=== PATIENT | female | born 1935 | race Two or more races ===

== ENCOUNTER 2018-08-28 13:07 | Outpatient (CLI) | payer MEDICARE, MEDICAID ==
[2018-08-29] MEDS ORDERED: HYDR-4076 PO (02:04)
[2018-08-29] MEDS ORDERED: PYRI60TA PO (02:04)
[2018-08-29] MEDS ORDERED: METO50TA16 PO (02:04)
[2018-08-29] MEDS ORDERED: ASPI-605 PO (02:04)
[2018-08-29] MEDS ORDERED: METO25TA3 PO (07:58)
[2018-08-29] MEDS ORDERED: ATOR10TA PO (07:58)
== END 2018-08-28 23:59 | disposition home health service (06) ==
LOC: WOU 13:07
PROVIDERS: ATTEND Surgery
DX: S41.111A Laceration without foreign body of right upper arm, initial encounter (principal); S51.811A Laceration without foreign body of right forearm, initial encounter; L03.113 Cellulitis of right upper limb; X58.XXXA Exposure to other specified factors, initial encounter; Y92.049 Unspecified place in boarding-house as the place of occurrence of the external cause; L89.210 Pressure ulcer of right hip, unstageable; L89.100 Pressure ulcer of unspecified part of back, unstageable; F03.90 Unspecified dementia, unspecified severity, without behavioral disturbance, psychotic disturbance, mood disturbance, and anxiety; Z98.49 Cataract extraction status, unspecified eye; Z79.82 Long term (current) use of aspirin; Z79.899 Other long term (current) drug therapy; Z74.09 Other reduced mobility
CPT/HCPCS: 11043; A6253; A6402; J3490

== ENCOUNTER 2018-08-28 14:45 | Inpatient (IN) | payer MEDICAID, MEDICARE ==
[2018-08-28] VITALS: BP_SYST 153; BP_DIAS 73; BP_DIAS 74
[~2018-08-28] VITALS: Ht 154.9 cm; Wt 72.6 kg
--- NOTE | 2018-08-28 13:00 | NUR ---
PAM. PT RECEIVED FROM [facility] WITH FAMILY. PT DIRECT FROM WOUND [facility]INIC. PT SITTING APPROX 15MIN IN WHEELCHAIR. PT ORTHOSTATIC TAKEN FROM CHAIR, SITTING BP 63/37, PT TRANSFERRED TO BED, REVERSE [place], BP 100/54, TS INFORMED AND ORDERS RECEIVED. IVX1 STARTED. PT AT [facility] ALERT TO SELF. PT SKIN ASSESSMENT COMPLETED AND CHART UPDATED, PT BELONGINGS LIST COMPLETED BY CAFETERIA OPERATOR. PT AND FAMILY BRIEFED ON POC AND ARE WITHOUT CONCERN OR COMPLAINT AT THIS TIME.
[2018-08-28 15:30] VITALS: BP 100/54
[2018-08-28 16:43] VITALS: BP_SYST 100; BP_SYST 63; BP_DIAS 37; BP_DIAS 54
[2018-08-28] MEDS ORDERED: ONDANSETRON HCL/PF 4 MG/2 ML VIAL IVP PRN (17:00)
[2018-08-28] MEDS ORDERED: HYDROCORTISONE SOD SUCCINATE 100 MG/2 ML VIAL IV ONE (17:00)
[2018-08-28] MEDS ORDERED: IV NS 0.9% 500 ML IV ONE (17:00)
[2018-08-28] MEDS ORDERED: ZOLPIDEM TARTRATE 5 MG TABLET PO PRN (17:00)
[2018-08-28] MEDS ORDERED: Z GUARD REMEDY 2 OZ OINT TP PRN (17:00)
[2018-08-28] MEDS ORDERED: FEE PK DOSING 1 MIN EA MC ONE (17:30)
[2018-08-28] MEDS ORDERED: VANCOMYCIN 1 GM in IV D5W 250 ML IV ONE ×2 (17:30→18:00)
[2018-08-28 18:07] LABS: CALCIUM, SERUM 8.5 mg/dL (8.5-10.1); CARBON DIOXIDE 29 mmol/L (21-32); CHLORIDE 103 mmol/L (98-107); CREATININE 1.3 mg/dL (0.6-1.3); GLUCOSE 121 mg/dL (74-106); SODIUM SERUM 138 mmol/L (136-145); UREA NITROGEN, BLOOD 26 mg/dL (7-18)
[2018-08-28] MEDS: IV NS 0.9% 1,000 ML IV PRN (18:08)
[2018-08-28 18:25] VITALS: BP 110/59
--- NOTE | 2018-08-28 18:51 | NUR ---
MSRN. PT TOLERATING ROOM AIR WITH SPO2 WNL AND WITHOUT DISTRESS, PT WITHOUT OBVIOUS DISTRESS OR DISCOMFORT. PT IVC AT L AC INTACT AND OPERATIONAL WITH BANDAGE AND SLEEVE FOR PROTECTION. PT WITH FAMILY AT BEDSIDE. ALL DAY NURSE DUTIES ATTENDED TO AND PT AND FAMILY ARE WITHOUT CONCERN OR COMPLAINT AT THIS TIME.
--- NOTE | 2018-08-28 19:30 | NUR ---
MS1 RN NOTES RECEIVED ON BED SLEEPING,AROUSABLE TO VERBAL STIMULI.BREATHING NON LABORED,97% ON ROOM AIR.WITH IVF NS AT 75ML/HR RATE INFUSING VIA IV PUMP ON LEFT AC.VISITORS AT BEDSIDE.ALL LIGHT IN REACH,NEEDS ANTICIPATED. Addendum: 08/28/18 at 2224 by TOBY DANIELS RN ABOVE NOTES,PATIENT AROUSABLE TO CARE,FACIAL GRIMACE WHEN REPOSITIONING,
[2018-08-28 20:00] VITALS: BP 147/73
[2018-08-28] MEDS ORDERED: PIPERACILLIN /TAZOBACTAM 3.375 G in IV D5W 50 ML IV ONE (20:00)
--- NOTE | 2018-08-28 20:30 | NUR ---
MS1 RN NOTES FAMILY MEMBER CONCERN ABOUT PATIENT STATUS,NON AROUSABLE TO VERBAL STIMULI,BUT WITH FACIAL GRIMACE ON REPOSITIONING.FAMILY WANTS BLOOD WORKS.CHARGE NURSE MADE AWARE,TO CALL DR CASTRO OVERHEAD IRRIGATOR MD FOR TONIGHT.
--- NOTE | 2018-08-28 20:48 | NUR ---
MS1 RN NOTES LOADING DOSE OF ZOSYN 3.375GM IV STARTED AT 100ML/HR RATE VIA IV PUMP ON LEFT AC.
[2018-08-28] MEDS: ENOXAPARIN SODIUM 30 MG/0.3 ML DISP.SYRIN SQ SCH (21:00)
--- NOTE | 2018-08-28 21:20 | NUR ---
MS1 RN NOTES SPOKE TO DR CASTRO,MADE AWARE OF PATIENT STATUS,GIVE SOME INFORMATION REGARDING ADMISSION WITH NEW ORDERS NOTED AND CARRIED OUT.
[2018-08-28 21:24] LABS: BASOPHILS % (AUTO) 0.3 % (0.0-2.0); EOSINOPHILS % (AUTO) 0.5 % (0.0-6.0); HEMATOCRIT 29 % (33-45); HEMOGLOBIN 9.8 g/dL (11.5-14.8); LYMPHOCYTES # (AUTO) 0.8 /CMM (0.8-4.8); LYMPHOCYTES % (AUTO) 9.9 % (20.0-44.0); MEAN CORPUSCULAR HGB CONC 34 g/dl (31.0-36.0); MEAN CORPUSCULAR VOLUME 86 fL (82-100); MONOCYTES # (AUTO) 0.3 /CMM (0.1-1.30); MONOCYTES % (AUTO) 3.6 % (2.0-12.0); NEUTROPHILS # (AUTO) 7.2 /CMM (1.8-8.9); NEUTROPHILS % (AUTO) 85.7 % (43.0-81.0); PLATELET COUNT (AUTO) 282 /CMM (150-450); RED BLOOD CELL COUNT(AUTO) 3.41 MIL/uL (4.0-5.2); WHITE BLOOD COUNT (AUTO) 8.4 K/uL (4.3-11.0)
[2018-08-28 21:38] LABS: C-REACTIVE PROTEIN 1.9 mg/dL (0.0-0.9)
--- NOTE | 2018-08-28 21:45 | NUR ---
TELE1 RN NOTES PORTABLE CHEST X-RAY DONE.
--- NOTE | 2018-08-28 22:00 | NUR ---
TELE1 RN NOTES OUT FOR CT HEAD WITHOUT CONTRAST BY BED,WITH TELE MONITOR ACCOMPANIED BY LISA CHARGE NURSE.
--- NOTE | 2018-08-28 22:30 | NUR ---
TELE1 RN NOTES ACCU-CHECK BLOOD SUGAR CHECK 110,NO INSULIN COVERAGE,JUST FOR DIAGNOSTIC
--- NOTE | 2018-08-28 23:30 | NUR ---
TELE1 RN NOTES STARTED TO WAKE UP,OPEN EYES,ABLE TO TALK TO FAMILY MEMBERS,REPOSITION TO COMFORT.ABLE TO DRINK APPLE JUICE.NEGATIVE FOR ASPIRATION.
[2018-08-28] MEDS: ACETAMINOPHEN 325 MG TABLET PO PRN (23:37)
--- NOTE | 2018-08-28 23:37 | NUR ---
TELE1 RN NOTES C/O MILD PAIN ON RIGHT ARM,S/P WOUND DEBRIDEMENT,MEDICATED WITH TYLENOL 650MG PO ,TAKEN WELL.FAMILY MEMBER DONT WANT NARCOTICS FOR PATIENT.
[2018-08-29] VITALS: BP 153/74
[2018-08-29 00:19] LABS: APPEARANCE,URINE CLEAR (CLEAR); BILIRUBIN,URINE NEGATIVE (NEGATIVE); BLOOD, URINE NEGATIVE Ery/uL (NEGATIVE); COLOR,URINE OTHER (YELLOW); KETONES,URINE NEGATIVE (NEGATIVE); LEUKOCYTE ESTERASE ,URINE NEGATIVE (NEGATIVE); NITRITE, URINE NEGATIVE (NEGATIVE); PH,URINE 6.5 (5.0-8.0); PROTEIN,URINE NEGATIVE (NEGATIVE); UGLUCOSE NEGATIVE (NEGATIVE); UROBILINOGEN,URINE 0.2 EU/dL (0.2)
[2018-08-29] MEDS ORDERED: HYDR-4076 PO (02:04)
[2018-08-29] MEDS ORDERED: METO50TA16 PO (02:04)
[2018-08-29] MEDS ORDERED: PYRI60TA PO (02:04)
[2018-08-29] MEDS ORDERED: ASPI-605 PO (02:04)
[2018-08-29] MEDS: PIPERACILLIN /TAZOBACTAM 3.375 G in IV D5W 100 ML IV SCH ×2 (02:12→14:44)
[2018-08-29 06:00] VITALS: BP 150/60
--- NOTE | 2018-08-29 06:00 | NUR ---
TELE1 RN NOTES FAMILY MEMBER VELVET STILL WANTED TO TALK TO HOSPITALIST.CHARGE NURSE MADE AWARE.CHARGE NURSE MADE AWARE AND SEND MESSAGE TO HOSPTALIST DR CASTRO.PER CHARGE NURSE,DR CASTRO SAID THAT DR PRAKASH CAMARA IS THE DOCTOR AND SHE ONLY COVERING,THAT HE WILL BE HERE SOON TO SEE PATIENT.
--- NOTE | 2018-08-29 06:30 | NUR ---
TELE1 RN NOTES NURSING USED CAR SALES SUPERVISOR GERMAN MADE AWARE OF PATIENT CONCERN.
[2018-08-29 06:32] LABS: BASOPHILS % (AUTO) 0.3 % (0.0-2.0); EOSINOPHILS % (AUTO) 0.1 % (0.0-6.0); HEMATOCRIT 28 % (33-45); HEMOGLOBIN 9.4 g/dL (11.5-14.8); LYMPHOCYTES % (AUTO) 14.1 % (20.0-44.0); MEAN CORPUSCULAR HGB CONC 34 g/dl (31.0-36.0); MEAN CORPUSCULAR VOLUME 86 fL (82-100); MONOCYTES # (AUTO) 0.3 /CMM (0.1-1.30); MONOCYTES % (AUTO) 4.9 % (2.0-12.0); NEUTROPHILS # (AUTO) 5.5 /CMM (1.8-8.9); NEUTROPHILS % (AUTO) 80.6 % (43.0-81.0); PLATELET COUNT (AUTO) 288 /CMM (150-450); RED BLOOD CELL COUNT(AUTO) 3.25 MIL/uL (4.0-5.2); WHITE BLOOD COUNT (AUTO) 6.9 K/uL (4.3-11.0)
[2018-08-29 06:47] LABS: CHOLESTEROL 109 mg/dL (<200); HDL CHOLESTEROL 57 mg/dL (40-60); LDL 49 mg/dL (0-99); TRIGLYCERIDES 26 mg/dL (30-150)
--- NOTE | 2018-08-29 06:49 | NUR ---
[id number] NOTES FAIRLY RESTED AT NIGHT.LATEST ORAL TEMPERATURE WAS 97.3.HIDALGO DRAINS WELL 850ML CLEAR YELLOW OUTPUT.GRAND DAUGHTER STILL DEMAND TO TALK TO HOSPITALIST.IN NO ACUTE DISTRESS.WILL ENDORSE TO PANDA HOFFMAN FOR CONTINUITY OF CARE.
[2018-08-29 06:51] LABS: ALANINE AMINOTRANSFERASE 28 U/L (12-78); ALBUMIN 2.3 g/dL (3.4-5.0); ALKALINE PHOSPHATASE 102 U/L (46-116); ASPARTATE AMINOTRANSFERASE 10 U/L (15-37); BILIRUBIN,TOTAL 0.4 mg/dL (0.2-1.0); CALCIUM, SERUM 8.7 mg/dL (8.5-10.1); CARBON DIOXIDE 26 mmol/L (21-32); CHLORIDE 106 mmol/L (98-107); CREATININE 1.4 mg/dL (0.6-1.3); GLUCOSE 106 mg/dL (74-106); PHOSPHORUS 4.4 mg/dL (2.5-4.9); POTASSIUM 4.2 mmol/L (3.5-5.1); SODIUM SERUM 139 mmol/L (136-145); TOTAL PROTEIN, SERUM 5.6 g/dL (6.4-8.2); UREA NITROGEN, BLOOD 25 mg/dL (7-18)
[2018-08-29 07:07] LABS: IRON, SERUM 23 ug/dl (50-175); TOTAL IRON BINDING CAPACITY 225 ug/dl (250-450)
--- NOTE | 2018-08-29 07:20 | NUR ---
FUNERAL HOME DIRECTOR NOTES Report received. Patient received in bed, sleeping comfortable, easily aroused. Family at bedside. Grand daughter (DPOA) at bedside waiting for the doctor. Assessment done. Skin warm to touch. IV fluids running @75ml/hr. No SOB/unlabored breathing noted (patient snoring while sleeping)/Not in any type of distress. Dressing in place: clean and intact. Safety measures in place. Call light within reach. Will continue to monitor and assess patient Addendum: 08/29/18 at 0815 by АНДРЕЙ RAMOS RN TELE: 75
[2018-08-29] MEDS ORDERED: METO25TA3 PO (07:58)
[2018-08-29] MEDS ORDERED: ATOR10TA PO (07:58)
[2018-08-29] MEDS: PANTOPRAZOLE 40 MG TABLET.DR PO SCH (07:59)
[2018-08-29 08:00] VITALS: BP 132/55
--- NOTE | 2018-08-29 08:49 | NUR ---
ANNA RN NOTES Spoke to Dr. Rodriguez, Patient is to be admitted under the care of Dr. Rachid Jernigan for RUE Cellulitis. (Order in chart to call Dr. Jernigan for orders). Per Dr. Rodriguez, he will inform Dr. Jernigan.
--- NOTE | 2018-08-29 11:19 | NUR ---
ANNA RN NOTES Karena Merrill NP (yard specialist) came to assess and follow up on LEXIE s/p debridement by Dr. Flowers. Dressing changed with new orders for all wounds.
[2018-08-29] MEDS ORDERED: SILVER NITRATE APPLICATOR 1 EA BOX TP ONE (11:30)
[2018-08-29] MEDS ORDERED: LIDOCAINE 2%-EPI 1:100,000 30 ML VIAL TP ONE (11:30)
[2018-08-29] MEDS: VANCOMYCIN 0.75 GM in IV D5W 250 ML IV SCH (11:45)
[2018-08-29 12:00] VITALS: BP 152/77
[2018-08-29] MEDS: HYDROCODONE/APAP 5/325MG 1 EACH TABLET PO PRN (12:22)
[2018-08-29] MEDS: IV NS 0.9% 1,000 ML IV PRN (14:44)
--- NOTE | 2018-08-29 14:55 | NUR ---
ANNA RN NOTES Assisted with cleaning and applying KCI mattress on patient's bed. PT is here for eval.
--- NOTE | 2018-08-29 15:10 | NUR ---
ANNA RN NOTES Debridement done by Karena Merrill NP (optimization specialist)
[2018-08-29 16:00] VITALS: BP_SYST 105; BP_SYST 110; BP_DIAS 51; BP_DIAS 69
[2018-08-29] MEDS: NYSTATIN CREAM 15 GM TUBE TP SCH (18:38)
--- NOTE | 2018-08-29 19:09 | NUR ---
ANNA RN CLOSING NOTES Patient remained in bed, intermittenly sleeping, easily aroused. Alert and oriented x2, verbally responsive in South African/Congolese. Complained of pain with help of pain mgmt given prior to debridement. Not in any type of distress. No SOB/unalbored breathing. Afebrile. Kept patient clean and dry. All needs provided and met. Family members at bedside from [place]. Bed in locked and lowest position with bed alarm on and call light within reach. Will endorse to oncoming shift nurse. Called Pharmacy for [facility] delivery and spoke to Ludmila
[2018-08-29 20:00] VITALS: BP 130/55
[2018-08-29] MEDS: SOD FERRIC GLUC 125 MG in IV NS 0.9% 100 ML IV SCH (20:37)
[2018-08-29] MEDS: ENOXAPARIN SODIUM 30 MG/0.3 ML DISP.SYRIN SQ SCH (20:46)
[2018-08-30] VITALS: BP 155/64
[2018-08-30] MEDS: PIPERACILLIN /TAZOBACTAM 3.375 G in IV D5W 100 ML IV SCH ×2 (02:43→15:03)
[2018-08-30 04:00] VITALS: BP 129/52
[2018-08-30 06:18] LABS: BASOPHILS % (AUTO) 0.4 % (0.0-2.0); EOSINOPHILS % (AUTO) 1.4 % (0.0-6.0); HEMATOCRIT 26 % (33-45); HEMOGLOBIN 8.9 g/dL (11.5-14.8); LYMPHOCYTES # (AUTO) 1.9 /CMM (0.8-4.8); LYMPHOCYTES % (AUTO) 27.5 % (20.0-44.0); MEAN CORPUSCULAR HGB CONC 34 g/dl (31.0-36.0); MEAN CORPUSCULAR VOLUME 86 fL (82-100); MONOCYTES # (AUTO) 0.6 /CMM (0.1-1.30); MONOCYTES % (AUTO) 8.5 % (2.0-12.0); NEUTROPHILS # (AUTO) 4.4 /CMM (1.8-8.9); NEUTROPHILS % (AUTO) 62.2 % (43.0-81.0); PLATELET COUNT (AUTO) 270 /CMM (150-450); RED BLOOD CELL COUNT(AUTO) 3.06 MIL/uL (4.0-5.2); WHITE BLOOD COUNT (AUTO) 7.1 K/uL (4.3-11.0)
[2018-08-30 06:27] LABS: ALBUMIN 2.1 g/dL (3.4-5.0); BILIRUBIN,DIRECT 0.1 mg/dL (0.0-0.2); BILIRUBIN,TOTAL 0.4 mg/dL (0.2-1.0); TOTAL PROTEIN, SERUM 5.1 g/dL (6.4-8.2)
[2018-08-30] MEDS: IV NS 0.9% 1,000 ML IV PRN (06:38)
[2018-08-30] MEDS: PANTOPRAZOLE 40 MG TABLET.DR PO SCH (06:39)
[2018-08-30] MEDS: NYSTATIN CREAM 15 GM TUBE TP SCH ×2 (06:39→17:20)
[2018-08-30 06:49] LABS: MAGNESIUM 1.8 mg/dL (1.8-2.4); PHOSPHORUS 3.1 mg/dL (2.5-4.9)
[2018-08-30 06:54] LABS: CALCIUM, SERUM 8.3 mg/dL (8.5-10.1); CARBON DIOXIDE 27 mmol/L (21-32); CHLORIDE 108 mmol/L (98-107); CREATININE 1.2 mg/dL (0.6-1.3); GLUCOSE 86 mg/dL (74-106); POTASSIUM 4.1 mmol/L (3.5-5.1); SODIUM SERUM 141 mmol/L (136-145); UREA NITROGEN, BLOOD 20 mg/dL (7-18)
--- NOTE | 2018-08-30 07:21 | NUR ---
RN CLOSING NOTES NO ACUTE CHANGES OBSERVED OVERNIGHT. PATIENT ABLE TO SLEEP COMFORTABLY. PAIN TOLERATED WELL BY PATIENT, REPOSITIONED FOR COMFORT. IVF AND ATB ORDERED. FERRLICIT GIVEN ORDERED. FAMILY AT BEDSIDE AT ALL TIMES. NEEDS ANTICIPATED AND MET. CALL LIGHT IN REACH. ENDORSED ACCORDINGLY. Addendum: 08/30/18 at 0724 by RYAN EMERY RN AM VANCO DOSE ENDORSED TO NEXT SHIFT, TROUGH DRAWN AND PENDING AT THIS TIME.
--- NOTE | 2018-08-30 07:30 | NUR ---
rn opening notes received patient resting at bedside, daughter at bedside. no acute distress, no sob. pain 5/10, will administer pain mediscations as ordered. iv access intact and patent. keptp atient safe and comfortable. bed in low/locked position, siderails up, semifowlers, call light in reach. will continue to moniotr accordingly.
[2018-08-30 08:00] VITALS: BP_SYST 145; BP_SYST 150; BP_DIAS 62; BP_DIAS 69
[2018-08-30] MEDS: VANCOMYCIN 0.75 GM in IV D5W 250 ML IV SCH (08:03)
--- NOTE | 2018-08-30 08:30 | NUR ---
rn notes daughter reported that there is an old smear of blood on the pillow from patient's back. checked patient's back, old small wound on right upper back noticed dry, not bleeding, dressing changed. will moniotr accordingly.
--- NOTE | 2018-08-30 08:45 | NUR ---
endorsed to Esperanza RN for transfer of care. patient in stable condition.
[2018-08-30] MEDS: HYDROCODONE/APAP 5/325MG 1 EACH TABLET PO PRN (09:03)
--- NOTE | 2018-08-30 09:11 | NUR ---
TELE/RN NOTE THE PATIENT COMPLAINS OF PAIN 04/18. PRN NORCO GIVEN. WILL CONTINUE TO MONITOR.
[2018-08-30] MEDS: hydrALAZINE HCL 25 MG TABLET PO SCH ×4 (09:19→16:25)
[2018-08-30] MEDS: ASPIRIN EC 81 MG TABLET.DR PO SCH (09:47)
[2018-08-30] MEDS: ATORVASTATIN 10 MG TABLET PO SCH (09:47)
[2018-08-30] MEDS: METOPROLOL SUCCINATE 25 MG TAB.SR.24H PO SCH (09:47)
--- NOTE | 2018-08-30 09:50 | NUR ---
TELE/RN NOTE THE PATIENT ALERT AND ORIENTED X1. REDIRECTION AND REORIENTATION PROVIDED NEEDED. IN ROOM AIR AND SATURATION AT 95%. DENIES SOB. RESPIRATION REGULAR AND UNLABORED. DENIES PAIN. IN NO APPARENT DISTRESS. BED LOW AND LOCKED. SIDE RAILS UP X3. CALL LIGHT WITHIN REACH. WILL CONTINUE TO MONITOR.
--- NOTE | 2018-08-30 10:05 | NUR ---
TELE/RN NOTE THE PATIENT VERBALIZED NORCO PAIN MEDICATION BEING EFFECTIVE. THE PATIENT IN NO APPARENT DISTRESS AND RATES PAIN 0/10.
[2018-08-30] MEDS: PYRIDOSTIGMINE BROMIDE 60 MG TABLET PO SCH ×3 (10:55→16:25)
[2018-08-30 12:00] VITALS: BP 143/62
[2018-08-30] MEDS ORDERED: PYRIDOSTIGMINE BROMIDE 60 MG TABLET PO SCH (13:00)
[2018-08-30] MEDS ORDERED: hydrALAZINE HCL 25 MG TABLET PO SCH (13:00)
[2018-08-30] MEDS: DAKINS HALF STRENGTH (0.25%) 480 ML BOTTLE TOP SCH (13:06)
[2018-08-30] MEDS: SOD FERRIC GLUC 125 MG in IV NS 0.9% 100 ML IV SCH (13:31)
--- NOTE | 2018-08-30 14:14 | NUR ---
TELE/RN NOTE RECEIVED NEW ORDER FROM DR HERNANDEZ OF COLACE 100 MG QD PO. THE ORDER IS READ BACK, VERIFIED. NOTED AND CARRIED OUT.
[2018-08-30 16:00] VITALS: BP 153/51
--- NOTE | 2018-08-30 19:16 | NUR ---
TELE/RN CLOSING NOTE THE PATIENT ALERT AND ORIENTED X1. DENIES SOB. RESPIRATION REGULAR AND UNLABORED. DENIES PAIN. IN NONAPPARENT DISTRESS. GOOD AND GENTLE SKIN CARE RENDERED. KEPT CLEAN, DRY AND COMFORTABLE. ALL NEEDS ATTENDED AND ANTICIPATED. BED LOW AND LOCKED. SIDE RAILS UP X3. CALL LIGHT WITHIN REACH. WILL CONTINUE TO MONITOR.
--- NOTE | 2018-08-30 19:17 | NUR ---
WILL ENDORSE TO FINANCIAL OFFICER.
[2018-08-30 20:00] VITALS: BP 137/53
--- NOTE | 2018-08-30 20:00 | NUR ---
RN NOTES PATIENT ALERT AND ORIENTED X2. REDIRECTION AND REORIENTATION PROVIDED NEEDED. ON 2LO2 VOA NC AND SATURATION AT 95%. DENIES SOB. RESPIRATION REGULAR AND UNLABORED.LEFT FOREARM IV LINE IS PATIENT AND INTACT, DENIES PAIN AT THIS TIME. IN NO APPARENT DISTRESS. HIDALGO CATHETER IN PLACE AND DRAINING YELLOW CLEAR URINE ON GRAVITY. BED LOW AND LOCKED POSITION . SIDE RAILS UP X3. CALL LIGHT WITHIN REACH. WILL CONTINUE TO MONITOR.
[2018-08-30] MEDS: ENOXAPARIN SODIUM 30 MG/0.3 ML DISP.SYRIN SQ SCH (22:05)
[2018-08-30] MEDS: ACETAMINOPHEN 325 MG TABLET PO PRN (22:05)
[2018-08-31] VITALS (9 sets, daily range): BP systolic 115–158; BP diastolic 49–69
[2018-08-31] MEDS: VANCOMYCIN 0.75 GM in IV D5W 250 ML IV SCH ×2 (00:26→17:02)
[2018-08-31] MEDS: PIPERACILLIN /TAZOBACTAM 3.375 G in IV D5W 100 ML IV SCH ×2 (02:35→14:12)
[2018-08-31] MEDS: IV NS 0.9% 1,000 ML IV PRN (02:35)
[2018-08-31] MEDS: NYSTATIN CREAM 15 GM TUBE TP SCH ×2 (05:28→15:32)
[2018-08-31 07:00] LABS: CALCIUM, SERUM 8.2 mg/dL (8.5-10.1); CARBON DIOXIDE 26 mmol/L (21-32); CHLORIDE 108 mmol/L (98-107); CREATININE 1.3 mg/dL (0.6-1.3); GLUCOSE 80 mg/dL (74-106); POTASSIUM 4.3 mmol/L (3.5-5.1); SODIUM SERUM 142 mmol/L (136-145); UREA NITROGEN, BLOOD 19 mg/dL (7-18)
--- NOTE | 2018-08-31 07:45 | NUR ---
RN OPENING NOTES PT RECEIVED IN BED AT LOWEST AND LOCKED POSITION WITH SIDE RAILS UP X2, A/O X2, BREATHING EVEN AND UNLABORED, NO PAIN OR DISTRESS NOTED AT THIS TIME, IV IS PATENT AND INTACT, FAMILY PRESENT AT THE BEDSIDE, SAFETY PRECAUTIONS IN PLACE, CALL LIGHT WITHIN REACH, WILL MONITOR ACCORDINGLY
[2018-08-31] MEDS: ATORVASTATIN 10 MG TABLET PO SCH (08:41)
[2018-08-31] MEDS: ASPIRIN EC 81 MG TABLET.DR PO SCH (08:41)
[2018-08-31] MEDS: PYRIDOSTIGMINE BROMIDE 60 MG TABLET PO SCH ×3 (08:42→16:44)
[2018-08-31] MEDS: PANTOPRAZOLE 40 MG TABLET.DR PO SCH (08:42)
[2018-08-31] MEDS: hydrALAZINE HCL 25 MG TABLET PO SCH ×3 (08:44→16:45)
[2018-08-31] MEDS: METOPROLOL SUCCINATE 25 MG TAB.SR.24H PO SCH (08:44)
[2018-08-31] MEDS: DAKINS HALF STRENGTH (0.25%) 480 ML BOTTLE TOP SCH (08:45)
[2018-08-31] MEDS: DOCUSATE SODIUM 100 MG CAPSULE PO SCH (08:48)
[2018-08-31] MEDS ORDERED: METOPROLOL SUCCINATE 25 MG TAB.SR.24H PO SCH (09:00)
[2018-08-31] MEDS ORDERED: ATORVASTATIN 10 MG TABLET PO SCH (09:00)
[2018-08-31] MEDS ORDERED: ASPIRIN EC 81 MG TABLET.DR PO SCH (09:00)
[2018-08-31] MEDS: SOD FERRIC GLUC 125 MG in IV NS 0.9% 100 ML IV SCH (13:11)
--- NOTE | 2018-08-31 13:15 | NUR ---
RN NOTES PHARMACY CALLED REGARDING MESTINON NOT BEING IN PT MEDICATION BIN
[2018-08-31] MEDS: ACETAMINOPHEN 325 MG TABLET PO PRN ×2 (13:35→22:40)
--- NOTE | 2018-08-31 13:59 | NUR ---
RN NOTES MESTINON NOT GIVEN AT THIS TIME DUE TO MED NOT AVAILABLE IN PT MEDICATION BIN
--- NOTE | 2018-08-31 15:18 | NUR ---
RN NOTES ALL WOUND DRESSINGS CHANGED
--- NOTE | 2018-08-31 18:24 | NUR ---
RN CLOSING NOTES PT IN BED AT LOWEST AND LOCKED POSITION WITH SIDE RAILS UP X2, A/O X2 LATVIAN/URDU SPEAKING ONLY, BREATHING EVEN AND UNLABORED, NO PAIN OR DISTRESS NOTED AT THIS TIME, IV IS PATENT AND INTACT, FAMILY PRESENT AT THE BEDSIDE, SAFETY PRECAUTIONS IN PLACE, CALL LIGHT WITHIN REACH, ALL NEEDS WERE ATTENDED TO, WILL ENDORSE TO BUS INSPECTOR RN FOR CONTINUITY OF CARE
--- NOTE | 2018-08-31 20:00 | NUR ---
TELE/RN NOTES: RECEIVED PT. IN BED W/ HOB ELEVATED. W/ DAUGHTER AT BEDSIDE. W/ TELE SR 64. W/ F/C PATENT AND INTACT DRAINING VIA GRAVITY. W/ HL LFA G 22 PATENT AND INTACT W/ NO S/S OF INFECTION/INFILTRATION NOTED. SPEAKS TAJIK. NOT IN ANY DISTRESS. WILL CONTINUE TO MONITOR.
[2018-08-31] MEDS: ENOXAPARIN SODIUM 30 MG/0.3 ML DISP.SYRIN SQ SCH (22:28)
--- NOTE | 2018-08-31 22:55 | NUR ---
TELE/RN NOTES: GRAND DAUGHTER CALLED ASKING FOR PT. H/H AND PLATLETS. GRANDDAUGHTER UPSET AND WANTED A STAT CBC DONE TO SEE WHAT IS THE LATEST H/H. PER GRAND DAUGHTER PT. IS GOING TO HAVE SURGERY FOR HER ARM ULCER TO HEAL AND WHEN THEY ERIKA THE LAST BLOOD DRAW IT WAS DILUTED. CALLED DR. CASTRO W/ ORDERS FOR STAT CBC. AT 0000 GRAND DAUGHTER CALLED AND UPDATED THE RESULTS. GRAND DAUGHTER IS HAPPY. DAUGHTER IS BY BEDSIDE.
[2018-08-31 23:55] LABS: BASOPHILS % (AUTO) 0.5 % (0.0-2.0); EOSINOPHILS % (AUTO) 1.8 % (0.0-6.0); HEMATOCRIT 27 % (33-45); LYMPHOCYTES % (AUTO) 26.8 % (20.0-44.0); MEAN CORPUSCULAR HGB CONC 33 g/dl (31.0-36.0); MEAN CORPUSCULAR VOLUME 86 fL (82-100); MONOCYTES # (AUTO) 0.8 /CMM (0.1-1.30); NEUTROPHILS # (AUTO) 4.5 /CMM (1.8-8.9); NEUTROPHILS % (AUTO) 59.9 % (43.0-81.0); PLATELET COUNT (AUTO) 271 /CMM (150-450); RED BLOOD CELL COUNT(AUTO) 3.15 MIL/uL (4.0-5.2); WHITE BLOOD COUNT (AUTO) 7.5 K/uL (4.3-11.0)
[2018-09-01] VITALS: BP 140/72
[2018-09-01] MEDS: PIPERACILLIN /TAZOBACTAM 3.375 G in IV D5W 100 ML IV SCH ×2 (01:27→14:11)
[2018-09-01 04:00] VITALS: BP 121/60
[2018-09-01 05:08] VITALS: BP 151/61
[2018-09-01] MEDS: NYSTATIN CREAM 15 GM TUBE TP SCH ×2 (05:31→16:21)
[2018-09-01 06:33] LABS: CALCIUM, SERUM 8.5 mg/dL (8.5-10.1); CARBON DIOXIDE 26 mmol/L (21-32); CHLORIDE 109 mmol/L (98-107); CREATININE 1.2 mg/dL (0.6-1.3); GLUCOSE 82 mg/dL (74-106); POTASSIUM 3.9 mmol/L (3.5-5.1); SODIUM SERUM 143 mmol/L (136-145); UREA NITROGEN, BLOOD 14 mg/dL (7-18)
--- NOTE | 2018-09-01 07:29 | NUR ---
TELE/RN NOTES: REPORT GIVEN TO NEXT SHIFT NURSE FOR JAMA.
[2018-09-01 08:00] VITALS: BP 149/68
[2018-09-01] MEDS: ASPIRIN EC 81 MG TABLET.DR PO SCH (08:16)
[2018-09-01] MEDS: ATORVASTATIN 10 MG TABLET PO SCH (08:16)
[2018-09-01] MEDS: PYRIDOSTIGMINE BROMIDE 60 MG TABLET PO SCH ×3 (08:16→16:48)
[2018-09-01] MEDS: DOCUSATE SODIUM 100 MG CAPSULE PO SCH (08:16)
[2018-09-01] MEDS: PANTOPRAZOLE 40 MG TABLET.DR PO SCH (08:16)
[2018-09-01] MEDS: METOPROLOL SUCCINATE 25 MG TAB.SR.24H PO SCH (08:17)
[2018-09-01] MEDS: hydrALAZINE HCL 25 MG TABLET PO SCH ×3 (08:17→16:49)
[2018-09-01] MEDS: DAKINS HALF STRENGTH (0.25%) 480 ML BOTTLE TOP SCH (08:41)
--- NOTE | 2018-09-01 09:35 | NUR ---
RN NOTE: Noted with large BM, wound care rendered, hygienic care rendered. Tolerated well. Denies pain and discomfort.
[2018-09-01] MEDS ORDERED: LIDOCAINE 2%-EPI 1:100,000 30 ML VIAL TP ONE (10:30)
--- NOTE | 2018-09-01 11:05 | NUR ---
Social service consult requested for placement. Pt is a 83 year female who was admitted due to cellulitis and other bacterial skin infections. NADIA spoke with Xuan in case management which verified that Pt has been accepted to [facility]. No further social sciences instructor needs at this time.
--- NOTE | 2018-09-01 12:30 | NUR ---
RN NOTE: S/P R arm wound debridement by Dr Flowers, assisted by Karena Triana. Daughter at bedside, consent obtained from ROLANDO Guzmán/giovanny. Pt tolerated procedure well.
--- NOTE | 2018-09-01 12:35 | NUR ---
RN NOTE: Pt s/b Dr Jernigan; updated on pt status. For DC planning. Daughter at bedside and updated on status.
[2018-09-01] MEDS: VANCOMYCIN 0.75 GM in IV D5W 250 ML IV SCH (12:54)
[2018-09-01] MEDS: SOD FERRIC GLUC 125 MG in IV NS 0.9% 100 ML IV SCH (14:45)
--- NOTE | 2018-09-01 14:45 | NUR ---
ANNA/RN: Pt's daughter at bedside; updated on pt status. Per CM, DC planning to [facility] today.
[2018-09-01] MEDS: ACETAMINOPHEN 325 MG TABLET PO PRN (15:26)
--- NOTE | 2018-09-01 15:55 | NUR ---
RN note: Clarified DC plan with Dr Jernigan, per MD do not discharge today. Daughter at bedside, informed and updated. associate product integrity engineer and CM notified.
[2018-09-01 16:00] VITALS: BP 157/62
[2018-09-01 21:00] VITALS: BP 133/53
[2018-09-01] MEDS: ENOXAPARIN SODIUM 30 MG/0.3 ML DISP.SYRIN SQ SCH (21:00)
--- NOTE | 2018-09-01 21:00 | NUR ---
RN MS NOTES RECEIVED REPORT FROM RN FOR CONTINUITY OF CARE PATIENT IN BED,AWAKE ALERT AND ORIENTED X 2, RESPIRATIONS EVEN AND UNLABORED WITH EQUAL RISE AND FALL OF CHEST, DENIES ANY PAIN OF DISCOMFORT, NO FACIAL GRIMACING PRESENT, NO MOANS PRESENT, HIDALGO CATHETER INTACT AND PATENT DRAINING YELLOW URINE, DRESSING TO RIGHT FA AND RIGHT HIP INTACT, LEFT FA #22 IV SITE INTACT AND PATENT, NO REDNESS, NO INFILTRATION, ALL NEEDS ATTENDED WILL CONTINUE TO MONITOR
--- NOTE | 2018-09-01 21:37 | NUR ---
RN MS NOTES SPOKE TO DR CASTRO MADE AWARE OF PATIENT PROCEDURE S/P DEBRIDEMENT IN AM AND H/H LEVEL AND REPORTED PER AM SHIFT NOTED WITH BLEEDING UPON PROCEDURE, NEW ORDER RECEIVED AND READ BACK HOLD DOSE FOR TONIGHT. DAUGHTER AT BEDSIDE MADE AWARE PATIENT IS AWARE OF PLAN OF CARE. WILL CONTINUE TO MONITOR.
[2018-09-02] VITALS: BP 133/53
[2018-09-02] MEDS: PIPERACILLIN /TAZOBACTAM 3.375 G in IV D5W 100 ML IV SCH ×2 (01:44→14:00)
[2018-09-02 04:00] VITALS: BP 151/61
[2018-09-02] MEDS: NYSTATIN CREAM 15 GM TUBE TP SCH (05:02)
[2018-09-02] MEDS: VANCOMYCIN 0.75 GM in IV D5W 250 ML IV SCH (05:49)
--- NOTE | 2018-09-02 06:34 | NUR ---
RN MS CLOSING NOTES PATIENT IN BED SLEEPING BUT EASILY AROUSABLE ,RESPIRATIONS EVEN AND UNLABORED WITH EQUAL RISE AND FALL OF CHEST, NO RESPIRATORY DISTRESS, NO SOB, DENIES PAIN AT THIS TIME , IV SITE TO LEFT FA #22 INTACT AND PATENT, NO REDNESS, NO INFILTRATION PRESENT, IV ATB ORDERED CURRENTLY RUNNING. HIDALGO CATHETER INTACT AND DRAINING, URINE YELLOW, PROPER HIDALGO ALIGNMENT, NO LEAKS, PATIENT REMAINS CLEAN, WOUND CARE PROVIDED TO RIGHT HIP AND BACK DUE TO SOILED, RIGHT ARM DRESSINGS REMAIN CLEAN DRY AND INTACT, PATIENT REPOSITIONED, CALL LIGHT KEPT WITHIN REACH, DAUGHTER AT BEDSIDE, ALL NEEDS WERE ATTENDED, SAFETY PRECAUTIONS IN PLACE, WILL CONTINUE TO MONITOR AND ENDORSE TO NEXT SHIFT.ALL MEDS GIVEN ORDERED.
[2018-09-02 07:01] LABS: CALCIUM, SERUM 8.6 mg/dL (8.5-10.1); CARBON DIOXIDE 26 mmol/L (21-32); CHLORIDE 106 mmol/L (98-107); CREATININE 1.1 mg/dL (0.6-1.3); GLUCOSE 88 mg/dL (74-106); POTASSIUM 3.9 mmol/L (3.5-5.1); SODIUM SERUM 140 mmol/L (136-145); UREA NITROGEN, BLOOD 15 mg/dL (7-18)
[2018-09-02] MEDS: PANTOPRAZOLE 40 MG TABLET.DR PO SCH (07:33)
--- NOTE | 2018-09-02 07:53 | NUR ---
M/S RN - Assessment Patient awake, A/O x 2, denies shortness of breath, no apparent distress noted, stable on 2 lpm via NC. Saline lock on the LFA is patent, intact, with no signs of infiltration. Will do wound care as ordered. Contreras catheter in place. Fall and aspiration precautions maintained. Daughter at bedside updated on plan of care. Possible discharge to [facility] today.
[2018-09-02 08:00] VITALS: BP 174/74
[2018-09-02] MEDS: hydrALAZINE HCL 25 MG TABLET PO SCH ×2 (08:13→12:50)
[2018-09-02] MEDS: PYRIDOSTIGMINE BROMIDE 60 MG TABLET PO SCH ×2 (08:13→12:44)
[2018-09-02] MEDS: DOCUSATE SODIUM 100 MG CAPSULE PO SCH (08:14)
[2018-09-02] MEDS: ATORVASTATIN 10 MG TABLET PO SCH (08:14)
[2018-09-02] MEDS: ASPIRIN EC 81 MG TABLET.DR PO SCH (08:14)
[2018-09-02] MEDS: METOPROLOL SUCCINATE 25 MG TAB.SR.24H PO SCH (08:14)
[2018-09-02] MEDS: DAKINS HALF STRENGTH (0.25%) 480 ML BOTTLE TOP SCH (08:15)
[2018-09-02 12:50] VITALS: BP 162/64
[2018-09-02] MEDS: SOD FERRIC GLUC 125 MG in IV NS 0.9% 100 ML IV SCH (14:00)
--- NOTE | 2018-09-02 14:20 | NUR ---
M/S RN - Discharge Patient feeling better, A/O x 2, discharged to [facility] in stable condition. Reviewed discharge instructions with DALTON Nance and she verbalized full understanding and all questions answered to her satisfaction. Patient with no belongings. VSS, denies pain, afebrile, no c/o SOB, tolerating room air, no apparent distress seen. No fall/injury during hospital stay. Contreras catheter in place, peripheral IV patent and intact. Discharge photos taken on all skin breakdown. Discharge papers sent with ambulance crew. Granddaughter Arielle (DPOA) aware of discharge.
[2018-09-03] MEDS ORDERED: VANCOMYCIN 0.75 GM in IV D5W 250 ML IV SCH (06:00)
== END 2018-09-02 14:20 | DRG 364 ==
LOC: WOUND1 14:45 → TELE1 21:23 → TELE-TD 21:46 → TELE1 22:32 → MEDSG1 09-01 10:30
PROVIDERS: ADMIT Internal Medicine Nephrology; ATTEND Internal Medicine Nephrology
PROC: 0JBL0ZZ Excision of Right Upper Leg Subcutaneous Tissue and Fascia, Open Approach (ICD-10-PCS; principal; 2018-08-29)
PROC: 0JBD0ZZ Excision of Right Upper Arm Subcutaneous Tissue and Fascia, Open Approach (ICD-10-PCS; principal; 2018-08-29)
PROC: 0KB90ZZ Excision of Right Lower Arm and Wrist Muscle, Open Approach (ICD-10-PCS; 2018-09-01)
DX: L03.113 Cellulitis of right upper limb (principal); L89.133 Pressure ulcer of right lower back, stage 3; L89.213 Pressure ulcer of right hip, stage 3; L89.893 Pressure ulcer of other site, stage 3; D68.59 Other primary thrombophilia; F03.90 Unspecified dementia, unspecified severity, without behavioral disturbance, psychotic disturbance, mood disturbance, and anxiety; E78.5 Hyperlipidemia, unspecified; Z95.5 Presence of coronary angioplasty implant and graft; I25.10 Atherosclerotic heart disease of native coronary artery without angina pectoris; L30.4 Erythema intertrigo; Z74.01 Bed confinement status; D64.9 Anemia, unspecified; R53.81 Other malaise; I25.2 Old myocardial infarction
CPT/HCPCS: 36415; 70450-TC; 71045-TC; 80048-TC; 80053-TC; 80061-TC; 80076-TC; 80202-TC; 81000-TC; 82533; 82962-TC; 83540-TC; 83605-TC; 83735-TC; 84100-TC; 84443-TC; 84484-TC; 85025-TC; 85652-TC; 86140-TC; 87040-TC; 93307-TC; A6253; A6402; A6403; G0378; J1650; J1720; J2543; J2916; J3370; J3490; J7030; J7040; J7050; J7060

== ENCOUNTER 2018-10-01 11:39 | Inpatient (IN) | payer MEDICARE, MEDICAID ==
[~2018-10-01] VITALS: Ht 154.9 cm; Wt 65.3 kg
[~2018-10-01 11:39] MED LIST: ASPI-605 PO; ATOR10TA PO; HYDR-4076 PO; METO25TA3 PO; PYRI60TA PO
--- NOTE | 2018-10-01 12:10 | NUR ---
BIB [facility] FOR RUE CELLULITIS EVAL. WOUNDS ARE PINK AND WELL-APPROXIMATED. PT HAS A HX OF DEMENTIA, IS AOX2, VSS, RR EVEN AND UNLABORED. NO ACUTE DISTRESS NOTED. HAS DIFFICULTY WALKING WITH ASSISTANCE, BOTSWANAN-SPEAKING. DAUGHTER AT BEDSIDE. SEEN BY MD. WAITING FOR ORDERS
--- NOTE | 2018-10-01 12:25 | NUR ---
VIKKI JEFFERS AT BEDSIDE FOR EKG
[2018-10-01 12:34] LABS: BASOPHILS # (AUTO) 0.1 /CMM (0.0-0.2); BASOPHILS % (AUTO) 1.4 % (0.0-2.0); EOSINOPHILS % (AUTO) 2.5 % (0.0-6.0); HEMATOCRIT 36 % (33-45); HEMOGLOBIN 11.8 g/dL (11.5-14.8); LYMPHOCYTES % (AUTO) 28.7 % (20.0-44.0); MEAN CORPUSCULAR HGB CONC 33 g/dl (31.0-36.0); MEAN CORPUSCULAR VOLUME 88 fL (82-100); MONOCYTES # (AUTO) 0.7 /CMM (0.1-1.30); NEUTROPHILS % (AUTO) 57.4 % (43.0-81.0); PLATELET COUNT (AUTO) 263 /CMM (150-450); RED BLOOD CELL COUNT(AUTO) 4.09 MIL/uL (4.0-5.2)
[2018-10-01 12:41] LABS: CARBON DIOXIDE 27 mmol/L (21-32); CHLORIDE 105 mmol/L (98-107); CREATININE 1.1 mg/dL (0.6-1.3); GLUCOSE 99 mg/dL (74-106); POTASSIUM 4.7 mmol/L (3.5-5.1); SODIUM SERUM 138 mmol/L (136-145); UREA NITROGEN, BLOOD 22 mg/dL (7-18)
--- NOTE | 2018-10-01 12:56 | NUR ---
CALLED RADIOLOGY FOR XR, WAS TOLD THEY ARE ON THE WAY
[2018-10-01] MEDS ORDERED: MAGN400O6 PO (13:05)
[2018-10-01] MEDS ORDERED: ENOX30DI SQ (13:05)
[2018-10-01] MEDS ORDERED: HYDR-4076 PO (13:05)
[2018-10-01] MEDS ORDERED: DOCU100C36 PO (13:05)
[2018-10-01] MEDS ORDERED: MULT-213 PO (13:05)
[2018-10-01] MEDS ORDERED: CHOL100044 PO (13:05)
[2018-10-01] MEDS ORDERED: BISA10SU61 RC (13:05)
[2018-10-01] MEDS ORDERED: NA P133E RC (13:05)
[2018-10-01] MEDS ORDERED: ACET325T53 PO (13:05)
[2018-10-01] MEDS ORDERED: HYDR-4384 PO (13:05)
[2018-10-01] MEDS ORDERED: PANT40TA4 PO (13:05)
[2018-10-01] MEDS ORDERED: HYDR-4077 PO (13:05)
[2018-10-01] MEDS ORDERED: AMIN30LI2 PO (13:05)
[2018-10-01] MEDS ORDERED: ASCO500T9 PO (13:05)
--- NOTE | 2018-10-01 13:08 | NUR ---
CALLED NURSING SUP REQUESTED MED SURG BED FOR THIS PATIENT.
[2018-10-01] MEDS ORDERED: NYST15PO4 TP (13:09)
[2018-10-01] MEDS ORDERED: GEL100GE TP (13:09)
--- NOTE | 2018-10-01 13:31 | NUR ---
ADMIT TO [facility] ROOM 306-1 GHASSAN HOFFMAN DX CELLULITIS, NON HEALING WOUND, ACCEPTING [facility] HYMAN
--- NOTE | 2018-10-01 13:47 | NUR ---
REPORT GIVEN TO DALTON FERRELL FOR 306-1 MS
--- NOTE | 2018-10-01 14:12 | NUR ---
PT TRANSFERRED TO FLOOR [facility]IA [facility]
--- NOTE | 2018-10-01 15:03 | NUR ---
ms rn received a new admission from er, awake,alert, aware of what is happening at this time, came in w/ right arm cellulitis, area w/ dry dressing, denies pain at this time.
[2018-10-01 16:00] VITALS: BP 146/71
--- NOTE | 2018-10-01 17:31 | NUR ---
ms rn orders done by dr. marin, and carried out.
--- NOTE | 2018-10-01 18:00 | NUR ---
ms rn daughter at bedside,all needs attended.
--- NOTE | 2018-10-01 19:00 | NUR ---
ms rn on bed, all needs attended.
[2018-10-01 20:00] VITALS: BP 130/56
[2018-10-01] MEDS: IV D5/ 0.9% NACL 1,000 ML IV PRN (20:01)
--- NOTE | 2018-10-02 06:27 | NUR ---
MS RN NOTES PT SLEEPING. EASILY AROUSABLE. NOT IN ANY DISTRESS. NO SOB NOTED. NO S/SX OF ANY PAIN OR DISCOMFORT AT THIS TIME. KEPT ON NPO P MN WITH IVF INFUSING WELL. AM CARE DONE. MONITORED ACCORDINGLY. CALL LIGHT WITHIN REACH. BED IN LOWEST POSITION. SR UP X 3 WITH BED ALARM ON FOR SAFETY. WILL ENDORSE TO NEXT SHIFT.
[2018-10-02 06:36] LABS: BASOPHILS % (AUTO) 0.7 % (0.0-2.0); HEMATOCRIT 31 % (33-45); HEMOGLOBIN 10.4 g/dL (11.5-14.8); LYMPHOCYTES % (AUTO) 37.6 % (20.0-44.0); MEAN CORPUSCULAR HGB CONC 34 g/dl (31.0-36.0); MEAN CORPUSCULAR VOLUME 87 fL (82-100); MONOCYTES # (AUTO) 0.5 /CMM (0.1-1.30); MONOCYTES % (AUTO) 9.7 % (2.0-12.0); NEUTROPHILS # (AUTO) 2.6 /CMM (1.8-8.9); PLATELET COUNT (AUTO) 216 /CMM (150-450); RED BLOOD CELL COUNT(AUTO) 3.55 MIL/uL (4.0-5.2); WHITE BLOOD COUNT (AUTO) 5.3 K/uL (4.3-11.0)
[2018-10-02 06:38] LABS: ALANINE AMINOTRANSFERASE 20 U/L (12-78); ALBUMIN 2.6 g/dL (3.4-5.0); ALKALINE PHOSPHATASE 68 U/L (46-116); ASPARTATE AMINOTRANSFERASE 8 U/L (15-37); BILIRUBIN,TOTAL 0.3 mg/dL (0.2-1.0); CALCIUM, SERUM 8.6 mg/dL (8.5-10.1); CARBON DIOXIDE 25 mmol/L (21-32); CHLORIDE 109 mmol/L (98-107); GLUCOSE 94 mg/dL (74-106); POTASSIUM 4.4 mmol/L (3.5-5.1); SODIUM SERUM 141 mmol/L (136-145); TOTAL PROTEIN, SERUM 5.6 g/dL (6.4-8.2); UREA NITROGEN, BLOOD 23 mg/dL (7-18)
--- NOTE | 2018-10-02 07:15 | NUR ---
MS/RN OPENING NOTE THE PATIENT IS RECEIVED AWAKE IN BED. ALERT AND ORIENTED X1. REDIRECTION AND REORIENTATION PROVIDED NEEDED. IN ROOM AIR AND DENIES SOB. RESPIRATION REGULAR AND UNLABORED. DENIES PAIN. THE PATIENT IN NO APPARENT DISTRESS. NPO SINCE MIDNIGHT. LAC G 20 PATENT AND D5NS IS INFUSING AT 75ML/HR AND NO S/S INFILTRATION NOTED. BED LOW AND LOCKED. SIDE RAILS UP X3. CALL LIGHT WITHIN REACH. WILL CONTINUE TO MONITOR.
[2018-10-02 08:00] VITALS: BP 183/76
--- NOTE | 2018-10-02 10:25 | NUR ---
MS/RN NOTE THE PATIENT IS TAKEN TO OR. PATIENT IN STABLE CONDITION.
[2018-10-02] MEDS ORDERED: LIDOCAINE HCL/PF 1% 30 ML SDV ONE (10:39)
[2018-10-02] MEDS ORDERED: BUPIVACAINE MPF 0.5% W/EPI INJ 30 ML VIAL ONE (10:39)
[2018-10-02] MEDS ORDERED: MINERAL OIL 10 ML VIAL MC ONE (10:40)
[2018-10-02] MEDS ORDERED: MIDAZOLAM HCL 2 MG/2ML VIAL ONE (10:49)
[2018-10-02] MEDS ORDERED: FENTANYL PF 100MCG/2ML AMPUL ONE (10:50)
[2018-10-02] MEDS ORDERED: MAGNESIUM HYDROXIDE 30 ML UDC PO PRN (13:30)
[2018-10-02] MEDS ORDERED: hydrALAZINE HCL 25 MG TABLET PO PRN (13:30)
[2018-10-02] MEDS ORDERED: NA PHOS,M-B/NA PHOS,DI-BA 1 EA ENEMA RC PRN (13:30)
[2018-10-02] MEDS ORDERED: BISACODYL SUPP (10 MG) 10 MG/SUPP.RECT SUPP.RECT RC PRN (13:30)
[2018-10-02] MEDS ORDERED: HYDROGEL DRESSING 90 GM TUBE TP SCH (14:00)
--- NOTE | 2018-10-02 14:00 | NUR ---
MS/RN NOTE THE PATIENT CURASEL GEL NOT ADMINISTERED DUE TO NEEDS TO BE CLARIFIED DR HAMLIN.
[2018-10-02 16:00] VITALS: BP 119/56
[2018-10-02] MEDS: hydrALAZINE HCL 50 MG TABLET PO SCH (17:00)
[2018-10-02] MEDS: ASCORBIC ACID 500 MG TABLET PO SCH (17:49)
[2018-10-02] MEDS: PYRIDOSTIGMINE BROMIDE 60 MG TABLET PO SCH (17:53)
[2018-10-02] MEDS: NYSTATIN TOP POWDER 15 GM BOTTLE TP SCH (17:54)
--- NOTE | 2018-10-02 18:30 | NUR ---
MS/RN CLOSING NOTE THE PATIENT ALERT AND ORIENTED X2. DENIES PAIN. RESPIRATION REGULAR AND UNLABORED. DENIES SOB. IN ROOM AIR AND SATURATION IS AT 96%. LAC G 20 PATENT AND D5NS INFUSING AT 75ML/HR. NO S/S INFILTRATION NOTED.RIGHT GROIN DRESSING IN PLACE. NO REDNESS, NO S/S INFECTION NOTED. RIGHT FOREARM DRESSING ON AND WRAPPED WITH ICE WRAPPED WITH FARHAD WRAP. DRESSING NOT CHANGED OR REMOVED. BED LOW AND LOCKED. SIDE RAILS UP X3. CALL LIGHT WITHIN REACH. WILL CONTINUE TO MONITOR.
[2018-10-02] MEDS: IV D5/ 0.9% NACL 1,000 ML IV PRN (19:12)
[2018-10-02] MEDS: HYDROCODONE/APAP 5/325MG 1 EACH TABLET PO PRN (19:56)
[2018-10-02 20:00] VITALS: BP 101/42
[2018-10-02] MEDS: ATORVASTATIN 10 MG TABLET PO SCH (21:40)
--- NOTE | 2018-10-03 06:20 | NUR ---
MS RN NOTES AWAKE & RESPONSIVE. NOT IN ANY DISTRESS. NO SOB NOTED. DENIES ANY PAIN OR DISCOMFORT AT THIS TIME. WITH IVF INFUSING WELL. AM CARE DONE. MONITORED ACCORDINGLY. CALL LIGHT WITHIN REACH. BED IN LOWEST POSITION. SR UP X 3 WITH BED ALARM ON FOR SAFETY. WILL ENDORSE TO NEXT SHIFT.
--- NOTE | 2018-10-03 06:22 | NUR ---
PUBLIC SERVICE OFFICER NOTES PT AWAKE. RESPONSIVE TO TACTILE STIMULI. WITH SAME VENT SETTINGS.NOT IN ANY DISTRESS. NO SOB NOTED. NO S/SX OF ANY PAIN OR DISCOMFORT AT THIS TIME. WITH IVF INFUSING WELL. AM CARE DONE. MONITORED ACCORDINGLY. CALL LIGHT WITHIN REACH. BED IN LOWEST POSITION. SR UP X 3 WITH BED ALARM ON FOR SAFETY. WILL ENDORSE TO NEXT SHIFT. Addendum: 10/03/18 at 0624 by KALPANA FISHMAN RN DISREGARD NOTES. NOTES FOR DIFFERENT PT.
[2018-10-03 06:36] LABS: BASOPHILS % (AUTO) 0.5 % (0.0-2.0); EOSINOPHILS % (AUTO) 2.5 % (0.0-6.0); HEMATOCRIT 29 % (33-45); HEMOGLOBIN 9.7 g/dL (11.5-14.8); LYMPHOCYTES % (AUTO) 36.4 % (20.0-44.0); MEAN CORPUSCULAR HGB CONC 33 g/dl (31.0-36.0); MEAN CORPUSCULAR VOLUME 87 fL (82-100); MONOCYTES # (AUTO) 0.6 /CMM (0.1-1.30); MONOCYTES % (AUTO) 11.3 % (2.0-12.0); NEUTROPHILS # (AUTO) 2.7 /CMM (1.8-8.9); NEUTROPHILS % (AUTO) 49.3 % (43.0-81.0); PLATELET COUNT (AUTO) 195 /CMM (150-450); RED BLOOD CELL COUNT(AUTO) 3.33 MIL/uL (4.0-5.2); WHITE BLOOD COUNT (AUTO) 5.6 K/uL (4.3-11.0)
[2018-10-03 06:47] LABS: ALANINE AMINOTRANSFERASE 16 U/L (12-78); ALBUMIN 2.4 g/dL (3.4-5.0); ALKALINE PHOSPHATASE 68 U/L (46-116); ASPARTATE AMINOTRANSFERASE 7 U/L (15-37); BILIRUBIN,TOTAL 0.2 mg/dL (0.2-1.0); CALCIUM, SERUM 8.2 mg/dL (8.5-10.1); CARBON DIOXIDE 23 mmol/L (21-32); CHLORIDE 113 mmol/L (98-107); CREATININE 1.1 mg/dL (0.6-1.3); GLUCOSE 92 mg/dL (74-106); PHOSPHORUS 3.5 mg/dL (2.5-4.9); POTASSIUM 4.5 mmol/L (3.5-5.1); SODIUM SERUM 145 mmol/L (136-145); TOTAL PROTEIN, SERUM 5.4 g/dL (6.4-8.2); UREA NITROGEN, BLOOD 23 mg/dL (7-18)
[2018-10-03 08:00] VITALS: BP 154/76
[2018-10-03] MEDS: PYRIDOSTIGMINE BROMIDE 60 MG TABLET PO SCH ×3 (08:33→17:51)
[2018-10-03] MEDS: hydrALAZINE HCL 50 MG TABLET PO SCH ×3 (08:34→17:51)
[2018-10-03] MEDS: MULTIVIT W/MINERALS 1 TAB TABLET PO SCH (08:34)
[2018-10-03] MEDS: DOCUSATE SODIUM 100 MG CAPSULE PO SCH (08:34)
[2018-10-03] MEDS: ASCORBIC ACID 500 MG TABLET PO SCH ×2 (08:34→17:51)
[2018-10-03] MEDS: METOPROLOL SUCCINATE 25 MG TAB.SR.24H PO SCH (08:34)
[2018-10-03] MEDS: HYDROCODONE/APAP 5/325MG 1 EACH TABLET PO PRN ×2 (08:34→12:45)
[2018-10-03] MEDS: ASPIRIN EC 81 MG TABLET.DR PO SCH (08:34)
[2018-10-03] MEDS: PANTOPRAZOLE 40 MG TABLET.DR PO SCH (08:35)
[2018-10-03] MEDS: NYSTATIN TOP POWDER 15 GM BOTTLE TP SCH ×2 (08:35→17:51)
[2018-10-03] MEDS: CHOLECALCIFEROL 1,000 UNIT TABLET (VIT D3) PO SCH (08:35)
[2018-10-03] MEDS: ENOXAPARIN SODIUM 30 MG/0.3 ML DISP.SYRIN SQ SCH (08:45)
[2018-10-03] MEDS: IV D5/ 0.9% NACL 1,000 ML IV PRN (12:53)
[2018-10-03 16:00] VITALS: BP 148/70
--- NOTE | 2018-10-03 19:25 | NUR ---
MS RN NOTE RECEIVED PT IN STABLE CONDITION A&O X2, TAIWANESE SPEAKING. DAUGHTER AT BEDSIDE. BREATHING EVEN AND UNLABORED WITH NO SIGNS OF SOB OR DISTRESS. PT IV ON L HAND PATENT AND INTACT. GRAFT SITES ARE INTACT WITH NO SIGNS OF DRAINAGE OR INFECTION. SAFETY MEASURES IN PLACE: BED LOW, LOCKED, UPPER RAILS UP, AND CALL LIGHT WITHIN REACH. WILL CONT. TO MONITOR.
[2018-10-03 20:00] VITALS: BP 135/66
[2018-10-03] MEDS: ACETAMINOPHEN 325 MG TABLET PO PRN (20:43)
[2018-10-03] MEDS: ATORVASTATIN 10 MG TABLET PO SCH (21:16)
[2018-10-04] MEDS: IV D5/ 0.9% NACL 1,000 ML IV PRN ×2 (03:09→17:50)
--- NOTE | 2018-10-04 06:16 | NUR ---
MS RN NOTE RECEIVED PT IN STABLE CONDITION A&O X2, ICELANDIC SPEAKING. BREATHING EVEN AND UNLABORED WITH NO SIGNS OF SOB OR DISTRESS. PT IV ON L HAND PATENT AND INTACT. GRAFT SITES ARE INTACT WITH NO SIGNS OF DRAINAGE OR INFECTION. SAFETY MEASURES IN PLACE: BED LOW, LOCKED, UPPER RAILS UP, AND CALL LIGHT WITHIN REACH. WILL CONT. TO MONITOR AND ENDORSE TO NEXT SHIFT FOR JAMA.
--- NOTE | 2018-10-04 07:05 | NUR ---
MS RN NOTES PATIENT IN BED EYES CLOSED, EASY TO AROUSE. RESPOND TO VERBAL AND TACTILE STIMULI. NO ACUTE DISTRESS NOTED. BREATHING UNLABORED. NO SOB NOTED. IV ACCESS PATENT AND INTACT, NO REDNESS OR SWELLING NOTED. RIGHT FOREARM AND ABOVE RIGHT GROIN DRESSING INTACT, CLEAN AND DRY WITH GOOD CIRCULATION. SAFETY MEASURES IN PLACE. CALL LIGHT WITHIN REACH. WILL CONTINUE TO MONITOR ACCORDINGLY.
[2018-10-04 08:00] VITALS: BP 175/82
[2018-10-04] MEDS: CHOLECALCIFEROL 1,000 UNIT TABLET (VIT D3) PO SCH (08:41)
[2018-10-04] MEDS: PANTOPRAZOLE 40 MG TABLET.DR PO SCH (08:41)
[2018-10-04] MEDS: ASCORBIC ACID 500 MG TABLET PO SCH ×2 (08:41→17:48)
[2018-10-04] MEDS: MULTIVIT W/MINERALS 1 TAB TABLET PO SCH (08:42)
[2018-10-04] MEDS: ASPIRIN EC 81 MG TABLET.DR PO SCH (08:42)
[2018-10-04] MEDS: hydrALAZINE HCL 50 MG TABLET PO SCH ×3 (08:44→16:49)
[2018-10-04] MEDS: METOPROLOL SUCCINATE 25 MG TAB.SR.24H PO SCH (08:44)
[2018-10-04] MEDS: ENOXAPARIN SODIUM 30 MG/0.3 ML DISP.SYRIN SQ SCH (08:49)
[2018-10-04] MEDS: NYSTATIN TOP POWDER 15 GM BOTTLE TP SCH ×2 (08:51→17:48)
[2018-10-04] MEDS: DOCUSATE SODIUM 100 MG CAPSULE PO SCH (08:52)
[2018-10-04] MEDS: PYRIDOSTIGMINE BROMIDE 60 MG TABLET PO SCH ×3 (09:03→16:50)
--- NOTE | 2018-10-04 12:30 | NUR ---
MS RN NOTES SEEN AND EVALUATED BY DR ADITYA MUSA WITH NEW ORDERS MADE, NOTED AND CARRIED OUT.
[2018-10-04 16:00] VITALS: BP_SYST 112; BP_SYST 155; BP_DIAS 66
--- NOTE | 2018-10-04 16:23 | NUR ---
MS RN NOTES SEEN AND EVALUATED BY DR MICKEY CARTWRIGHT DAUGHTER JASPER AND GRAND DAUGHTER VELVET WITH NEW ORDERS MADE, NOTED AND CARRIED OUT.
[2018-10-04] MEDS: SERTRALINE HCL 50 MG TABLET PO SCH (16:48)
[2018-10-04] MEDS: FLUVOXAMINE MALEATE 50 MG TABLET PO SCH (17:49)
[2018-10-04] MEDS: RIVASTIGMINE TARTRATE 1.5 MG CAPSULE PO SCH (17:49)
--- NOTE | 2018-10-04 18:49 | NUR ---
MS RN NOTES DPOA-GRAND DAUGHTER VELVET FRANCOIS GAVE NEW POLST FOR PATIENT DNR/DNI. NOTIFIED DR ADITYA MUSA AND GAVE OK, WITH NEW ORDER FOR CODE STATUS DNR/DNI, NOTED AND CARRIED OUT.
--- NOTE | 2018-10-04 19:00 | NUR ---
MS RN NOTES PATIENT IN BED ALERT ORIENTED X 2. FAMILY AT BEDSIDE. NO ACUTE DISTRESS NOTED. BREATHING UNLABORED. NO SOB NOTED. IV ACCESS PATENT AND INTACT, NO REDNESS OR SWELLING NOTED. RIGHT FOREARM AND ABOVE RIGHT GROIN DRESSING INTACT, CLEAN AND DRY WITH GOOD CIRCULATION.DUE MEDICATIONS GIVEN NO ASE NOTED. NEEDS ATTENDED AND ANTICIPATED. KEPT CLEAN, DRY AND COMFORTABLE. SAFETY MEASURES IN PLACE. CALL LIGHT WITHIN REACH. ENDORSED TO NIGHT NURSE FOR CONTINUITY OF CARE.
--- NOTE | 2018-10-04 19:30 | NUR ---
DALTON MS OPENING NOTES RECEIVED PT IN BED, SLEEPING, EASILY AROUSED TO TOUCH. BREATHING EVEN AND UNLABORED ON ROOM AIR, NO COUGH, CONGESTION, OR SOB NOTED. IN NO APPARENT PAIN OR DISCOMFORT. IV ACCESS ON THE L HAND G22 WITH D5NS 75ML/HR. BED IN [facility] Addendum: 10/04/18 at 2019 by MARCELLA FOURNIER RN LOWEST LOCKED POSITION, CALL LIGHT WITHIN REACH AT ALL TIMES, WILL CONTINUE TO MONITOR
[2018-10-04 20:00] VITALS: BP 144/57
[2018-10-04] MEDS: ATORVASTATIN 10 MG TABLET PO SCH (21:46)
[2018-10-04] MEDS ORDERED: risperiDONE 1 MG TABLET PO SCH (22:00)
--- NOTE | 2018-10-05 06:16 | NUR ---
RN MS CLOSING NOTES PT REMAINS IN BED, SLEEPING, EASILY AROUSED TO TOUCH. BREATHING EVEN AND UNLABORED ON ROOM AIR, NO COUGH, CONGESTION, OR SOB NOTED. IN NO APPARENT PAIN OR DISCOMFORT. IV ACCESS ON THE L HAND G22 APPEARS BENT, PT REFUSING REPLACEMENT, HIDING HER ARM UNDER THE COVERS YELLING "I WANT TO SLEEP" IN PERSI[place], D5NS 75ML/HR HELD AT THE MOMENT, WILL REINSERT BEFORE ENDORSEMENT. BED IN LOWEST LOCKED POSITION, CALL LIGHT WITHIN REACH AT ALL TIMES WILL ENDORSE TO DAY TIME NURSE
[2018-10-05 07:57] LABS: BASOPHILS % (AUTO) 0.4 % (0.0-2.0); EOSINOPHILS % (AUTO) 3.1 % (0.0-6.0); HEMATOCRIT 29 % (33-45); HEMOGLOBIN 9.5 g/dL (11.5-14.8); LYMPHOCYTES # (AUTO) 1.8 /CMM (0.8-4.8); LYMPHOCYTES % (AUTO) 25.5 % (20.0-44.0); MEAN CORPUSCULAR HGB CONC 33 g/dl (31.0-36.0); MEAN CORPUSCULAR VOLUME 88 fL (82-100); MONOCYTES # (AUTO) 0.6 /CMM (0.1-1.30); MONOCYTES % (AUTO) 8.5 % (2.0-12.0); NEUTROPHILS # (AUTO) 4.4 /CMM (1.8-8.9); NEUTROPHILS % (AUTO) 62.5 % (43.0-81.0); PLATELET COUNT (AUTO) 193 /CMM (150-450); RED BLOOD CELL COUNT(AUTO) 3.29 MIL/uL (4.0-5.2)
[2018-10-05] MEDS: PANTOPRAZOLE 40 MG TABLET.DR PO SCH (07:58)
[2018-10-05 08:00] VITALS: BP 156/72
[2018-10-05 08:21] LABS: CALCIUM, SERUM 8.3 mg/dL (8.5-10.1); CARBON DIOXIDE 21 mmol/L (21-32); CHLORIDE 111 mmol/L (98-107); CREATININE 0.9 mg/dL (0.6-1.3); GLUCOSE 96 mg/dL (74-106); SODIUM SERUM 140 mmol/L (136-145); UREA NITROGEN, BLOOD 19 mg/dL (7-18)
[2018-10-05] MEDS: DOCUSATE SODIUM 100 MG CAPSULE PO SCH (09:00)
[2018-10-05] MEDS: CHOLECALCIFEROL 1,000 UNIT TABLET (VIT D3) PO SCH (09:23)
[2018-10-05] MEDS: SERTRALINE HCL 50 MG TABLET PO SCH (09:24)
[2018-10-05] MEDS: ASCORBIC ACID 500 MG TABLET PO SCH ×2 (09:24→17:34)
[2018-10-05] MEDS: ASPIRIN EC 81 MG TABLET.DR PO SCH (09:24)
[2018-10-05] MEDS: hydrALAZINE HCL 50 MG TABLET PO SCH ×3 (09:24→17:35)
[2018-10-05] MEDS: MULTIVIT W/MINERALS 1 TAB TABLET PO SCH (09:24)
[2018-10-05] MEDS: FLUVOXAMINE MALEATE 50 MG TABLET PO SCH (09:24)
[2018-10-05] MEDS: RIVASTIGMINE TARTRATE 1.5 MG CAPSULE PO SCH ×2 (09:25→21:19)
[2018-10-05] MEDS: METOPROLOL SUCCINATE 25 MG TAB.SR.24H PO SCH (09:25)
[2018-10-05] MEDS: PYRIDOSTIGMINE BROMIDE 60 MG TABLET PO SCH ×3 (09:25→17:34)
[2018-10-05] MEDS: NYSTATIN TOP POWDER 15 GM BOTTLE TP SCH ×2 (09:30→17:35)
[2018-10-05] MEDS: ENOXAPARIN SODIUM 30 MG/0.3 ML DISP.SYRIN SQ SCH (09:34)
[2018-10-05] MEDS: ACETAMINOPHEN 325 MG TABLET PO PRN (11:35)
[2018-10-05 12:00] VITALS: BP 139/63
[2018-10-05] MEDS: IV D5/ 0.9% NACL 1,000 ML IV PRN (14:44)
[2018-10-05 16:00] VITALS: BP 148/74
--- NOTE | 2018-10-05 18:00 | NUR ---
MS RN NOTE OLD IV LINE PULLED OUT, INSERTED NEW IV LINE ON LEFT HAND G22 X 1 ATTEMPT WITH GOOD BACK FLOW. PATIENT TOLERATED WELL.
--- NOTE | 2018-10-05 19:00 | NUR ---
MS RN NOTES PATIENT IN BED EYES CLOSED, EASY TO AROUSE. RESPOND TO VERBAL AND TACTILE STIMULI. NO ACUTE DISTRESS NOTED. BREATHING UNLABORED. NO SOB NOTED. IV ACCESS PATENT AND INTACT, NO REDNESS OR SWELLING NOTED. RIGHT FOREARM AND ABOVE RIGHT GROIN DRESSING INTACT, CLEAN AND DRY WITH GOOD CIRCULATION.DUE MEDICATIONS GIVEN, NO ASE NOTED. NEEDS ATTENDED AND ANTICIPATED. KEPT CLEAN DRY AND COMFORTABLE. SAFETY MEASURES IN PLACE. ENDORSED TO NIGHT NURSE FOR CONTINUITY OF CARE.
--- NOTE | 2018-10-05 19:30 | NUR ---
MR RN INITIAL NOTES Patient is awake, stable on RA. Right forearm dressing C/D/I, Guatemalan speaking, denies pain per Guatemalan duct layer nurse. Maintained safety, bed alarm on and audible. Will cont to monitor.
[2018-10-05 20:00] VITALS: BP 137/60
[2018-10-05] MEDS: ATORVASTATIN 10 MG TABLET PO SCH (21:18)
[2018-10-05] MEDS: risperiDONE 0.25 MG TABLET PO SCH (21:18)
[2018-10-06] MEDS: PANTOPRAZOLE 40 MG TABLET.DR PO SCH (06:17)
--- NOTE | 2018-10-06 06:34 | NUR ---
MS RN CLOSING NOTES Patient slept well, no acute events overnight. Stable oxygen saturation on RA. IVF infusing, maintained at 75ml/hr. RFA wound dressing C/D/I denies pain. Patient was irritable, angry at times, psych following. Maintained safety, call light within reach, bed alarm on and audible at all times. will endorse to oncoming RN.
--- NOTE | 2018-10-06 07:21 | NUR ---
MS RN OPENING NOTE RECEIVED PT IN BED, AWAKE, ALERT AND RESPONSIVE TO VERBAL AND TACTILE STIMULI. PT IS PRIMARILY TRISTANIAN SPEAKING. NO ACUTE DISTRESS NOTED, BREATHING IS EVEN AND UNLABORED ON ROOM AIR. LEFT FINGER #22G IV IS INFUSING ORDERED WITHOUT REDNESS OR SWELLING. ASPIRATION PRECAUTIONS MAINTAINED. ALL NEEDS ATTENDED TO. BED IS LOCKED AND IN LOWEST POSITION, SIDE RAILS UP X2, BED ALARM ON, CALL LIGHT AND POSSESSIONS WITHIN REACH.
[2018-10-06] MEDS ORDERED: Z GUARD REMEDY 2 OZ OINT TP SCH (09:00)
[2018-10-06] MEDS: DOCUSATE SODIUM 100 MG CAPSULE PO SCH (09:26)
[2018-10-06] MEDS: ASPIRIN EC 81 MG TABLET.DR PO SCH (09:26)
[2018-10-06] MEDS: SERTRALINE HCL 50 MG TABLET PO SCH (09:26)
[2018-10-06] MEDS: hydrALAZINE HCL 50 MG TABLET PO SCH ×2 (09:26→12:40)
[2018-10-06] MEDS: ASCORBIC ACID 500 MG TABLET PO SCH (09:27)
[2018-10-06] MEDS: risperiDONE 0.25 MG TABLET PO SCH (09:27)
[2018-10-06] MEDS: MULTIVIT W/MINERALS 1 TAB TABLET PO SCH (09:27)
[2018-10-06] MEDS: METOPROLOL SUCCINATE 25 MG TAB.SR.24H PO SCH (09:27)
[2018-10-06] MEDS: CHOLECALCIFEROL 1,000 UNIT TABLET (VIT D3) PO SCH (09:27)
[2018-10-06] MEDS: PYRIDOSTIGMINE BROMIDE 60 MG TABLET PO SCH ×2 (09:29→12:40)
[2018-10-06] MEDS: RIVASTIGMINE TARTRATE 1.5 MG CAPSULE PO SCH (09:29)
[2018-10-06] MEDS: NYSTATIN TOP POWDER 15 GM BOTTLE TP SCH (09:30)
[2018-10-06] MEDS: ENOXAPARIN SODIUM 30 MG/0.3 ML DISP.SYRIN SQ SCH (09:34)
--- NOTE | 2018-10-06 13:10 | NUR ---
MS HOFFMAN NOTE SPOKE WITH DIAMOND AT [facility] TO GIVE REPORT, PER DIAMOND SHE IS COLLECTING REQUIRED PAPERWORK NOW AND HAS RECEIVED IT. INFORMED THE NURSE THAT THEY WILL CALL BACK FOR REPORT. REMINDED DIAMOND OF LICENSED FUNERAL DIRECTOR AND EMBALMER TIME OF 3:30 AND PROVIDED CALL BACK NUMBER AND NURSE NAME. PER DIAMOND THEY WILL CALL BACK PRIOR TO LICENSED FUNERAL DIRECTOR AND EMBALMER TIME OF 3:30 FOR REPORT. Addendum: 10/06/18 at 1514 by MARCELO CORRIGAN RN ERROR, PLEASE DISREGARD. WRONG TIME
--- NOTE | 2018-10-06 13:49 | NUR ---
MS RN NOTE INFORMED DAUGHTER JASPER OF D/C AND TRANSFER TODAY VIA TELEPHONE. LEFT VOICE MESSAGE WITH ROLANDO BRENNANUSH FOR CALL BACK WELL. JASPER AGREEABLE TO PLAN OF CARE/
--- NOTE | 2018-10-06 14:41 | NUR ---
MS RN NOTE CALLED [facility] TO GIVE REPORT, PER RURAL SERVICE ENGINEER [employer] IS ON THE OTHER LINE AND WILL CALL BACK FOR REPORT. PROVIDED CALL BACK NUMBER AND INFORMED THAT PT WILL BE PICKED UP AT 3:30PM AND TRANSPORTED VIA AMBULANCE.
--- NOTE | 2018-10-06 14:50 | NUR ---
MS RN NOTE PER DIAMOND AT [facility], THEY HAVE NOT RECIEVED ALL REQUIRED PAPERWORK FROM [facility] IN ORDER TO ACCEPT THE PT BACK. WILL INFORM CM
--- NOTE | 2018-10-06 14:51 | NUR ---
MS RN NOTE INFORMED MARYA LEMUS IN CM REGARDING [facility] REQUIRING ADDITIONAL PAPERWORK IN ORDER TO ACCEPT PT BACK. PER MARYA LEMUS SHE WILL FAX
--- NOTE | 2018-10-06 15:14 | NUR ---
MS RN NOTE SPOKE WITH DIAMOND AT [facility] TO GIVE REPORT, PER DIAMOND SHE IS COLLECTING REQUIRED PAPERWORK NOW AND HAS RECEIVED IT. INFORMED THE NURSE THAT THEY WILL CALL BACK FOR REPORT. REMINDED DIAMOND OF ENVIRONMENTAL REMEDIATION CONSULTANT TIME OF 3:30 AND PROVIDED CALL BACK NUMBER AND NURSE NAME. PER DIAMOND THEY WILL CALL BACK PRIOR TO ENVIRONMENTAL REMEDIATION CONSULTANT TIME OF 3:30 FOR REPORT.
--- NOTE | 2018-10-06 15:45 | NUR ---
MS RN PATIENT DISCHARGED PT DISCHARGED TO [facility] IN MEDICALLY STABLE CONDITION. PT IS ALERT AND ORIENTED X1, PRIMARILY GUINEAN SPEAKING. NO ACUTE DISTRESS NOTED AT THIS TIME, BREATHING IS EVEN AND UNLABORED ON ROOM AIR. LEFT FINGER PERIPHERAL IV REMOVED WITH CATHETER TIP INTACT. PT HAS A RIGHT FA DRESSING THAT IS CLEAN, DRY AND INTACT WITH ORDERS TO NOT REMOVE UNTIL ASSESS BY SERJIO WOLF NP AT THE [facility]. PT ALSO HAS A RLQ GRAFT SITE WITH DRESSING THAT IS CLEAN, DRY AND INTACT AND ORDERS TO NOT REMOVE STERI STRIPS BY SERJIO WOLF NP. OTHERWISE PT HAS GROIN AND SACRAL REDNESS THAT IS BLANCHABLE, A RIGHT HIP ABRASION AND A RIGHT DELTOID HEALING STAGE 3 PRESSURE ULCER THAT ARE PROTECTED WITH MEPILEX ORDERED. REPORT GIVEN TO DALTON CURTIS FOR CONTINITY OF CARE. DISCHARGE PAPERWORK AND EDUCATION, INCLUDING PT POLST AND GENERAL POWER OF OPERATORS SCHOOL MANAGER INCLUDED PER PROTOCOL. ALL BELONGINGS ACCOUNTED FOR AND BELONGINGS LIST SIGNED AND PLACED IN CHART. DAUGHTER JASPER INFORMED OF PT TRANSFER BACK TO SNF AND AGREEABLE TO PLAN OF CARE. REPORT GIVEN TO AMBULANCE STAFF FOR TRANSFER OF CARE.
[2018-10-06 16:00] VITALS: BP 150/68
== END 2018-10-06 15:45 | DRG 361 ==
LOC: ER 11:42 → MED 13:57
PROVIDERS: ADMIT Internal Medicine Nephrology; ATTEND Internal Medicine Nephrology
PROC: 0HRDX73 Replacement of Right Lower Arm Skin with Autologous Tissue Substitute, Full Thickness, External Approach (ICD-10-PCS; principal; 2018-10-02)
PROC: 0JBG0ZZ Excision of Right Lower Arm Subcutaneous Tissue and Fascia, Open Approach (ICD-10-PCS; principal; 2018-10-02)
PROC: 0HBAXZZ Excision of Inguinal Skin, External Approach (ICD-10-PCS; principal; 2018-10-02)
DX: S51.801A Unspecified open wound of right forearm, initial encounter (principal); L89.893 Pressure ulcer of other site, stage 3; D64.9 Anemia, unspecified; F03.90 Unspecified dementia, unspecified severity, without behavioral disturbance, psychotic disturbance, mood disturbance, and anxiety; E66.9 Obesity, unspecified; E78.5 Hyperlipidemia, unspecified; I25.10 Atherosclerotic heart disease of native coronary artery without angina pectoris; I25.2 Old myocardial infarction; Z68.27 Body mass index [BMI] 27.0-27.9, adult; I10 Essential (primary) hypertension; Z74.01 Bed confinement status; F32.9 Major depressive disorder, single episode, unspecified; I11.9 Hypertensive heart disease without heart failure; Z79.82 Long term (current) use of aspirin; Z79.899 Other long term (current) drug therapy; Z95.5 Presence of coronary angioplasty implant and graft; L30.4 Erythema intertrigo; F42.9 Obsessive-compulsive disorder, unspecified
CPT/HCPCS: 36415; 71045-TC; 80048-TC; 80053-TC; 83735-TC; 84100-TC; 85025-TC; 85730-TC; 87081-TC; A6209; A6248; A6253; A6402; G0378; J0690; J1650; J2250; J2405; J2704; J3010; J3490; J7030; J7042